=== PATIENT | male | born 1980 | race Caucasian/White ===

== ENCOUNTER 2019-10-19 01:51 | Emergency (ER) | payer BC, OTHER ==
[~2019-10-19] VITALS: Ht 175.3 cm; Wt 107.5 kg
[2019-10-19] MEDS ORDERED: DILTIAZEM HCL 5 MG/ML 5 ML VIAL IV STA ×2 (01:57)
[2019-10-19] MEDS ORDERED: ENOXAPARIN SODIUM INJ 100 MG/ML SYR SC STA (01:57)
[2019-10-19] MEDS ORDERED: SODIUM CHLORIDE 0.9% 1000ML 1,000 ML ONE (01:59)
[2019-10-19] MEDS ORDERED: AMIODARONE HCL 360MG 200 ML IV SCH ×2 (02:00→08:00)
[2019-10-19] MEDS ORDERED: AMIODARONE HCL 150MG 100 ML IV ONE (02:00)
[2019-10-19] MEDS ORDERED: AMIODARONE HCL 150MG 100 ML ONE (02:02)
[2019-10-19] MEDS ORDERED: DILTIAZEM HCL VIAL 5 ML ONE (02:03)
[2019-10-19] MEDS ORDERED: AMIODARONE HCL 360MG 200 ML IV ONE (02:03)
[2019-10-19] MEDS ORDERED: SODIUM CHLORIDE 0.9% 1000ML 1,000 ML IV ONE (02:15)
[2019-10-19 02:16] LABS: BASOPHILS # (AUTO) 0.1 (0.0-0.1); BASOPHILS % 0.5 % (0.0-1.0); EOSINOPHILS # (AUTO) 0.4 (0.0-0.4); EOSINOPHILS % 3.1 % (0.0-6.0); HEMATOCRIT 51.5 % (38.2-49.6); HEMOGLOBIN 17.6 g/dL (14.0-18.0); LYMPHOCYTES # (AUTO) 6.3 (1.0-3.2); LYMPHOCYTES % 53.9 % (18.0-39.1); MEAN CORPUSCULAR HEMOGLOBIN 28.4 pg (28-32); MEAN CORPUSCULAR HGB CONC 34.2 g/dL (31-35); MEAN CORPUSCULAR VOLUME 83.1 fL (81-99); MONOCYTES # (AUTO) 0.9 (0.2-0.8); MONOCYTES % 7.8 % (4.4-11.3); NEUTROPHILS # (AUTO) 4.1 (2.1-6.9); NEUTROPHILS % 34.4 % (38.7-80.0); PLATELET COUNT 273 x10e3/uL (140-360); RED CELL DISTRIBUTION WIDTH 13.4 % (11.7-14.4)
[2019-10-19 02:38] LABS: ALANINE AMINOTRANSFERASE 29 IU/L (0-55); ALBUMIN 4.9 g/dL (3.5-5.0); ALBUMIN/GLOBULIN RATIO 1.7 (0.8-2.0); ALKALINE PHOSPHATASE 64 IU/L (40-150); ANION GAP 14.9 mmol/L (8-16); BLOOD UREA NITROGEN 12 mg/dL (7-26); BUN/CREATININE RATIO 13 (6-25); CALCIUM 9.6 mg/dL (8.4-10.2); CARBON DIOXIDE 29 mmol/L (22-29); CHLORIDE 102 mmol/L (98-107); CREATINE KINASE 452 IU/L (30-200); CREATININE, SERUM 0.91 mg/dL (0.72-1.25); EST GLOMERULAR FILTRATION RATE > 60 ML/MIN (60-); GLUCOSE 109 mg/dL (74-118); SODIUM 143 mmol/L (136-145)
[2019-10-19 02:43] LABS: INR 0.88; PROTHROMBIN TIME 12.4 seconds (11.9-14.5)
[2019-10-19 02:44] LABS: PARTIAL THROMBOPLASTIN TIME 30.8 seconds (23.8-35.5)
[2019-10-19 02:57] LABS: POTASSIUM 2.9 mmol/L (3.5-5.1)
[2019-10-19] MEDS ORDERED: POTASSIUM CHLORIDE 20 MEQ TAB CR PO STA (02:58)
--- NOTE | 2019-10-19 03:00 | NUR ---
ER MD AND PRIMARY RN NOTIFIED AND AWARE OF CRITICAL LAB VALUE, POTASSIUM 2.9.
[2019-10-19 03:11] LABS: AMPHETAMINES SCREEN,URINE NEGATIVE (NEGATIVE); BENZODIAZEPINES SCREEN,URINE NEGATIVE (NEGATIVE); CLARITY,URINE CLEAR (CLEAR); COLOR,URINE YELLOW (YELLOW); KETONES,URINE NEGATIVE (NEGATIVE); LEUKOCYTE ESTERASE ,URINE NEGATIVE (NEGATIVE); NITRITE,URINE NEGATIVE (NEGATIVE); PHENCYCLIDINE SCREEN,URINE NEGATIVE (NEGATIVE); PROTEIN,URINE DIPSTICK NEGATIVE (NEGATIVE)
[2019-10-19 03:12] LABS: BACTERIA,URINE RARE /HPF; BILIRUBIN,URINE NEGATIVE (NEGATIVE); EPITHELIAL CELLS,URINE RARE /LPF; URINE UROBILINOGEN 0.2 mg/dL (0.2 - 1); WBC,URINE (MAN) 0-5 /HPF (0-5)
--- NOTE | 2019-10-19 03:14 | NUR ---
TRANSFER INITIATED AT THIS TIME. SPOKE WITH DARRIAN ATKINS, [employer] MAORISUPERVISOR [employer] PROCESSING. WAITING FOR ACCEPTANCE AT THIS TIME.
[2019-10-19] MEDS ORDERED: METOPROLOL TARTRATE INJ 1 MG/ML VIAL IV ONE (03:15)
--- NOTE | 2019-10-19 03:15 | Diagnostic Imaging Report ---
EXAMINATION: CHEST SINGLE (PORTABLE) INDICATION: Palpitations. COMPARISON: Chest x-ray 07/24/2008 FINDINGS: TUBES and LINES: None. LUNGS: Normal lung volumes. Lungs are clear. No consolidations. PLEURA: No pleural effusion or pneumothorax. HEART AND MEDIASTINUM: Globular soft tissue fullness in the lower central mediastinum. The cardiomediastinal silhouette is within normal size limits. BONES AND SOFT TISSUES: No acute osseous lesion. Soft tissues are unremarkable. UPPER ABDOMEN: No free air under the diaphragm. IMPRESSION: Suspect a hiatal hernia. Signed by: De Vogel DO on 10/19/2019 3:12 AM
[2019-10-19 04:06] LABS: FREE THYROXINE INDEX 2.9697 (1.4-3.8); THYROID STIMULATING HORMONE 2.337 uIU/mL (0.350-4.940)
== END 2019-10-19 04:45 | disposition short-term general hospital (02) ==
LOC: ER 01:51
DX: I48.91 Unspecified atrial fibrillation (principal); I10 Essential (primary) hypertension; Z82.49 Family history of ischemic heart disease and other diseases of the circulatory system
CPT/HCPCS: 36415; 71045; 80053; 80307; 81001; 82550; 82553; 84436; 84443; 84479; 84484; 85025; 85610; 85730; 93005; 99284; J1650; J7030

== ENCOUNTER 2020-12-10 04:27 | Emergency (ER) | payer BC ==
[~2020-12-10] VITALS: Ht 175.3 cm; Wt 107.5 kg
[2020-12-10] MEDS ORDERED: METOPROLOL TARTRATE INJ 1 MG/ML VIAL IV ONE ×2 (04:45→05:00)
[2020-12-10 04:55] LABS: BASOPHILS # (AUTO) 0.1 (0.0-0.1); BASOPHILS % 0.6 % (0.0-1.0); EOSINOPHILS # (AUTO) 0.3 (0.0-0.4); EOSINOPHILS % 2.6 % (0.0-6.0); HEMATOCRIT 50.4 % (38.2-49.6); HEMOGLOBIN 17.6 g/dL (14.0-18.0); LYMPHOCYTES # (AUTO) 5.1 (1.0-3.2); MEAN CORPUSCULAR HEMOGLOBIN 29.2 pg (28-32); MEAN CORPUSCULAR HGB CONC 34.9 g/dL (31-35); MEAN CORPUSCULAR VOLUME 83.6 fL (81-99); MONOCYTES # (AUTO) 0.8 (0.2-0.8); MONOCYTES % 5.9 % (4.4-11.3); NEUTROPHILS # (AUTO) 6.4 (2.1-6.9); NEUTROPHILS % 50.4 % (38.7-80.0); PLATELET COUNT 279 x10e3/uL (140-360); RED BLOOD COUNT 6.03 x10e6/uL (4.3-5.7); RED CELL DISTRIBUTION WIDTH 12.7 % (11.7-14.4)
[2020-12-10] MEDS ORDERED: LORAZEPAM INJ 2 MG/ML VIAL IV ONE (05:00)
[2020-12-10 05:04] LABS: INR 0.89; PROTHROMBIN TIME 12.6 seconds (11.9-14.5)
[2020-12-10 05:05] LABS: PARTIAL THROMBOPLASTIN TIME 30.9 seconds (23.8-35.5)
[2020-12-10] MEDS ORDERED: METOPROLOL TARTRATE INJ 1 MG/ML VIAL ONE (05:07)
[2020-12-10] MEDS ORDERED: LORAZEPAM INJ 2 MG/ML VIAL ONE (05:12)
[2020-12-10 05:14] LABS: ALANINE AMINOTRANSFERASE 22 IU/L (0-55); ALBUMIN 4.7 g/dL (3.5-5.0); ALBUMIN/GLOBULIN RATIO 1.3 (0.8-2.0); ALKALINE PHOSPHATASE 64 IU/L (40-150); ANION GAP 21.3 mmol/L (8-16); BLOOD UREA NITROGEN 22 mg/dL (7-26); BUN/CREATININE RATIO 21 (6-25); CALCIUM 9.5 mg/dL (8.4-10.2); CARBON DIOXIDE 23 mmol/L (22-29); CHLORIDE 104 mmol/L (98-107); CREATINE KINASE 87 IU/L (30-200); CREATININE, SERUM 1.05 mg/dL (0.72-1.25); EST GLOMERULAR FILTRATION RATE > 60 ML/MIN (60-); GLUCOSE 158 mg/dL (74-118); POTASSIUM 3.3 mmol/L (3.5-5.1); SODIUM 145 mmol/L (136-145)
[2020-12-10] MEDS ORDERED: DILTIAZEM HCL 5 MG/ML 5 ML VIAL IV STA ×2 (05:28→05:55)
[2020-12-10] MEDS ORDERED: DILTIAZEM HCL VIAL 5 ML ONE (05:36)
[2020-12-10] MEDS ORDERED: SODIUM CHLORIDE 0.9% 1000ML 1,000 ML IV ONE (06:00)
[2020-12-10] MEDS ORDERED: SODIUM CHLORIDE 0.9% 1000ML 1,000 ML ONE (06:10)
[2020-12-10] MEDS ORDERED: CARDIZEM30 MG PO (06:28)
[2020-12-10] MEDS ORDERED: DILTIAZEM HCL 30 MG TAB PO ONE (06:45)
[2020-12-10 06:54] VITALS: BP 148/101
== END 2020-12-10 07:07 | disposition home or self-care (01) ==
LOC: ER 04:43
DX: I48.91 Unspecified atrial fibrillation (principal); R94.31 Abnormal electrocardiogram [ECG] [EKG]
CPT/HCPCS: 36415; 71045; 80053; 82550; 82553; 83880; 84484; 85025; 85610; 85730; 93005; 99284; J2060; J7030